=== PATIENT | male | born 1985 | race Caucasian/White ===

== ENCOUNTER 2018-06-02 09:31 | Day surgery (SDC) | payer BC ==
[2018-06-02] MEDS ORDERED: CEFAZOLIN 1 GM/50 ML (PMX) 50 ML IVPB (10:00)
[2018-06-02] MEDS ORDERED: SEVOFLURANE 15 MIN (12:00)
[2018-06-02] MEDS ORDERED: CEFAZOLIN 1 GM INJ (12:00)
[2018-06-02] MEDS ORDERED: PROPOFOL 20 ML (13:08)
[2018-06-02] MEDS ORDERED: LIDOCAINE 2% (SDV) 5 ML INJ (13:09)
[2018-06-02] MEDS ORDERED: ROCURONIUM 50 MG INJ (13:09)
[2018-06-02] MEDS ORDERED: KETOROLAC 30 MG INJ (14:01)
[2018-06-02] MEDS: IOHEXOL 300MG/ML 30 ML BTL (14:02)
[2018-06-02] MEDS ORDERED: GLYCOPYRROLATE 0.4 MG INJ (14:27)
[2018-06-02] MEDS ORDERED: NEOSTIGMINE 3 MG/3 ML SYRINGE (14:27)
[2018-06-02] MEDS: MEPERIDINE 25 MG INJ IV (14:53)
[2018-06-02] MEDS: ONDANSETRON 4 MG INJ IV (14:53)
[2018-06-02] MEDS ORDERED: ALBUTEROL 0.083% (NEB) 2.5 MG/3 ML AMP HHN (15:00)
[2018-06-02] MEDS ORDERED: FENTAnyl 50 MCG/ML VIAL IV ×3 (15:00)
[2018-06-02] MEDS ORDERED: METOCLOPRAMIDE 10 MG INJ IV (15:00)
[2018-06-02] MEDS ORDERED: OXYCODONE/ACETAMINOPHEN (5/325) TAB PO ×2 (15:00)
[2018-06-02] MEDS ORDERED: LABETALOL HCL 20MG INJ IV (15:00)
[2018-06-02] MEDS ORDERED: KETOROLAC 30 MG INJ IV (15:00)
[2018-06-02] MEDS ORDERED: EPHEDrine SULFATE 50 MG/5 ML SYG IV (15:00)
[2018-06-02] MEDS ORDERED: DIPHENHYDRAMINE 50 MG INJ IV (15:00)
[2018-06-02] MEDS ORDERED: HYDROmorphONE 1 MG/5 ML IV SYRINGE IV ×3 (15:00)
[2018-06-02] MEDS ORDERED: MIDAZOLAM 1 MG/ML 2 ML INJ IV (15:00)
[2018-06-02] MEDS ORDERED: hydrALAzine 20 MG INJ IV (15:00)
== END 2018-06-02 16:46 | disposition home or self-care (01) ==
LOC: SDS 09:31
DX: N20.0 Calculus of kidney (principal); R94.39 Abnormal result of other cardiovascular function study
CPT/HCPCS: 52356